=== PATIENT | male | born 1950 | race Caucasian/White ===

== ENCOUNTER → 2016-07-08 | Outpatient (CLI) | payer MEDICARE, MEDICAID ==
[~2016-07-08] MED LIST: BENZ100 PO; BLOOD GLUCOSE T1 TES; DUONI NEB; FISH500C PO; FURO1TAB62 PO; IPRASOL INH; METO25 PO; METO25TA3 PO; PRAV10TA PO; PROT40TA PO; SERT-132 PO; SYMB160A INH; TAB-TAB PO; [UNRECOGNIZED DRUG - SUPPLY]; insulin syringes; lancet; test strip
[2016-07-08 12:14] LABS: HDL CHOLESTEROL 37.4 MG/DL (40.0-60.0); INDIRECT BILIRUBIN 0.2 MG/DL (0.0-0.8); TOTAL BILIRUBIN ADULT 0.4 MG/DL (0.2-1.0)
== END ==
LOC: CLAB 11:23
PROVIDERS: ATTEND Internal Medicine Interventional Cardiology
DX: E78.2 Mixed hyperlipidemia (principal); Z79.899 Other long term (current) drug therapy
CPT/HCPCS: 36415; 80061; 80076

== ENCOUNTER → 2017-02-24 | Outpatient (CLI) | payer MEDICARE, MEDICAID ==
[~2017-02-24] MED LIST changes: -BENZ100 PO; +COLL30T TOPICAL; +COUM7.5T PO; -DUONI NEB; -FISH500C PO; -METO25 PO; +NEBULIZER1 MI1; -TAB-TAB PO; -[UNRECOGNIZED DRUG - SUPPLY]; -insulin syringes; -lancet; -test strip
[2017-02-24 10:34] LABS: ALT (GPT) 12 U/L (12-78); AST (GOT) 12 U/L (15-37)
[2017-02-24 10:36] LABS: ALKALINE PHOSPHATASE 58 U/L (45-117); CREATINE KINASE 202 U/L (39-308); HDL CHOLESTEROL 40.7 MG/DL (40.0-60.0); INDIRECT BILIRUBIN 0.2 MG/DL (0.0-0.8); LDL CHOLESTEROL 40 MG/DL (0-99); TOTAL BILIRUBIN ADULT 0.3 MG/DL (0.2-1.0)
[2017-02-24 16:30] LABS: HEMOGLOBIN A1a 1.3 %; HEMOGLOBIN A1b 2.6 %; HEMOGLOBIN Ao 80.2 %; HEMOGLOBIN LA1C 3.1 %; HEMOGLOBIN P3 6.9 %
== END ==
LOC: CLAB 09:43
PROVIDERS: ATTEND Family Medicine
DX: E78.2 Mixed hyperlipidemia (principal); E11.9 Type 2 diabetes mellitus without complications; Z79.899 Other long term (current) drug therapy
CPT/HCPCS: 36415; 80061; 80076; 82550; 83036

== ENCOUNTER → 2017-04-16 | Outpatient (CLI) | payer MEDICARE, MEDICAID ==
[2017-04-16 12:22] LABS: % SATURATION IRON PROFILE 31.9 % (20-50); IRON (FE) 100 MCG/DL (65-175); TOTAL IRON BINDING CAPACITY 314 MCG/DL (250-450)
[2017-04-16 12:47] LABS: FERRITIN 933 NG/ML (26-388)
== END ==
LOC: CLAB 11:10
PROVIDERS: ATTEND Internal Medicine Gastroenterology
DX: R18.8 Other ascites (principal); K74.60 Unspecified cirrhosis of liver; D64.9 Anemia, unspecified
CPT/HCPCS: 36415; 82105; 82140; 82306; 82607; 82728; 82746; 83540; 83550

== ENCOUNTER → 2017-06-11 | Outpatient (CLI) | payer MEDICARE, MEDICAID ==
[2017-06-11 15:01] LABS: HEMOGLOBIN A1C 7.2 % (4.3-6.0)
== END ==
LOC: CLAB 11:35
PROVIDERS: ATTEND Family Medicine
DX: E11.9 Type 2 diabetes mellitus without complications (principal)
CPT/HCPCS: 36415; 83036

== ENCOUNTER → 2017-07-23 | Outpatient (CLI) | payer MEDICARE, MEDICAID | LOC: CLAB 07:59 | PROVIDERS: ATTEND Internal Medicine Gastroenterology | DX: E55.9 Vitamin D deficiency, unspecified (principal) | CPT/HCPCS: 36415; 82306 ==